=== PATIENT | female | born 1990 | race Caucasian/White ===

== ENCOUNTER 2016-11-22 08:41 | Day surgery (SDC) | payer OTHER ==
[~2016-11-22] VITALS: Ht 157.5 cm; Wt 48.5 kg
[2016-11-22] MEDS ORDERED: NEOSTIGMINE 1:1000 10 MG/10 ML VIAL IM ONE (12:15)
[2016-11-22] MEDS ORDERED: SUCCINYLCHOLINE CHLORIDE 200 MG/10 ML VIAL IV ONE (12:15)
[2016-11-22] MEDS ORDERED: ROCURONIUM 50 MG/5 ML VIAL IV ONE (12:15)
[2016-11-22] MEDS ORDERED: GLYCOPYRROLATE 0.2 MG/ML VIAL IV ONE (12:15)
[2016-11-22] MEDS ORDERED: DESFLURANE 240 ML BTL INH ONE (12:15)
[2016-11-22] MEDS ORDERED: ONDANSETRON 4 MG/2 ML VIAL IVP ONE (12:15)
[2016-11-22] MEDS ORDERED: KETOROLAC 60 MG/2 ML VIAL IM ONE (12:15)
[2016-11-22] MEDS ORDERED: PROPOFOL 200 MG/20 ML VIAL IV ONE (12:15)
[2016-11-22] MEDS ORDERED: BUPIVACAINE-MPF/EPI 0.25% 30 ML VIAL INJ ONE (12:28)
[2016-11-22] MEDS ORDERED: fentaNYL 0.05 MG/ML VIAL ONE (12:30)
[2016-11-22] MEDS ORDERED: MEPERIDINE 50 MG/ML SYR ONE (12:31)
[2016-11-22] MEDS ORDERED: MIDAZOLAM 2 MG/2 ML VIAL ONE (12:31)
[2016-11-22] MEDS ORDERED: MEPERIDINE 25 MG/ML SYR IVP PRN ×2 (13:30)
[2016-11-22] MEDS ORDERED: METOCLOPRAMIDE 10 MG/2 ML INJ VIAL IVP PRN (13:30)
[2016-11-22] MEDS ORDERED: MIDAZOLAM 2 MG/2 ML VIAL IVP ONE (13:30)
[2016-11-22] MEDS ORDERED: MEPERIDINE 25 MG/ML SYR IM PRN (13:30)
[2016-11-22] MEDS ORDERED: NACL 0.9% 1,000 ML IV SCH (13:34)
[2016-11-22] MEDS ORDERED: HYDROcodone/APAP 5/325 MG 1 TAB TAB PO PRN (13:35)
[2016-11-22] MEDS ORDERED: ACETAMINOPHEN 325 MG TAB PO PRN (13:35)
[2016-11-22] MEDS ORDERED: MORPHINE SULFATE 2 MG/ML SYR IVP PRN (13:35)
[2016-11-22] MEDS ORDERED: MORPHINE SULFATE 4 MG/ML SYR IV PRN (13:35)
[2016-11-22] MEDS ORDERED: HYDROmorphone 1 MG/ML AMP IVP PRN (13:35)
[2016-11-22] MEDS ORDERED: ONDANSETRON 4 MG/2 ML VIAL IV PRN (13:35)
[2016-11-22] MEDS ORDERED: MEPERIDINE 25 MG/ML SYR ONE ×2 (13:59→14:23)
[2016-11-22 14:55] VITALS: BP 105/58
--- NOTE | 2016-11-22 14:55 | NUR ---
TRANSFER PATIENT FROM OR , COMING VIA GURNEY . PATIENT S/P LAPAROSCOPIC CHOLECYSTECTOMY , HAS 4 SMALL SURGICAL INCISIONS COVERED WITH DRY AND INTACT DRESSING. PATIENT AWAKE,ALERT ,ORIENTED , VSS. DENIES PAIN . WITH IV FLUIDS INFUSING WELL. WILL CONTINUE MONITORING
[2016-11-22 15:10] VITALS: BP 112/67
[2016-11-22 15:52] VITALS: BP 107/63
--- NOTE | 2016-11-22 18:00 | NUR ---
NAUSE[facility] MED IV ORDERED GIVEN.
[2016-11-22] MEDS ORDERED: NORCO 325 MG-7.1 TAB PO (18:09)
--- NOTE | 2016-11-22 18:32 | NUR ---
DISCHARGE INSTRUCTIONS AND PRESCRIPTION GIVEN , PATIENT AND HER MOTHER VERBALIZED UNDERSTANDING . IV CATH REMOVED INTACT , COVER SITE WITH DRY STERILE DRESSING , NO BLEEDING NOTED. PATIENT WITH LEVEL OF PAIN 3/10 AT DC TIME . WENT TO LOBBY VIA WC , HER MOTHER PICK HER UP.
== END 2016-11-22 18:35 | disposition home or self-care (01) ==
LOC: MDS 08:41 → MMU 08:41 → MDS 18:35
PROVIDERS: ATTEND Surgery
DX: K80.00 Calculus of gallbladder with acute cholecystitis without obstruction (principal)
CPT/HCPCS: 47562; 71010; 82374; 86886; 86900; 86901; 87081; J0330; J0690; J1885; J2175; J2250; J2270; J2405; J2704; J2710; J3010; J3490; J7030; J7060; J7120